=== PATIENT | male | born 1970 | race Caucasian/White ===

== ENCOUNTER 2023-12-17 21:48 | Emergency (ER) | payer SELFPAY ==
[2023-12-17 21:55] VITALS: BP 136/92; PULSE 95; RESP 18; TEMP 98.1; BMI 29.9
[2023-12-17] MEDS ORDERED: LIDOCAINE 4% PATCH TP ONE (22:50)
[2023-12-17] MEDS ORDERED: IBUPROFEN 400 MG TABLET (FP) PO ONE (22:50)
[2023-12-17] MEDS: LIDOCAINE 4% PATCH TP ONE (22:54)
[2023-12-17] MEDS: LIDOCAINE PATCH REMOVAL MC SCH (22:54)
[2023-12-17] MEDS: IBUPROFEN 400 MG TABLET (FP) PO ONE (22:54)
== END 2023-12-18 00:50 | disposition home or self-care (01) ==
LOC: JER 21:48
DX: R07.81 Pleurodynia (principal); R42 Dizziness and giddiness; W01.198A Fall on same level from slipping, tripping and stumbling with subsequent striking against other object, initial encounter
CPT/HCPCS: 71046-TC-FY; 71101-TC-RT-FY; 99284-25